=== PATIENT | male | born 1995 ===

== ENCOUNTER 2022-03-25 13:51 | Inpatient (IN) | payer SELFPAY ==
[~2022-03-25] VITALS: Ht 182.9 cm; Wt 64.3 kg
[2022-03-25] MEDS ORDERED: NALOXONE HCL 1 MG/ML 2 ML SYRINGE IVP ONE (14:30)
[2022-03-25] MEDS ORDERED: LevETIRAcetam 1,000 MG in DEXTROSE 5%-WATER 100 ML IV ONE (14:30)
[2022-03-25 14:38] LABS: BASOPHILS % (AUTO) 0.2 % (0.0-2.0); EOSINOPHILS % (AUTO) 3.8 % (1.0-6.0); HEMATOCRIT 41.4 % (41-53); LYMPHOCYTES # (AUTO) 0.6 K/uL (1.0-4.8); LYMPHOCYTES % (AUTO) 14.3 % (22.0-44.0); MEAN CORPUSCULAR HEMOGLOBIN 32.3 pg (26.0-34.0); MEAN CORPUSCULAR HGB CONC 33.8 G/dL (31.0-37.0); MEAN CORPUSCULAR VOLUME 96 fL (80-100); MONOCYTES # (AUTO) 0.4 K/uL (0.1-1.0); MONOCYTES % (AUTO) 9.6 % (2.0-9.0); NEUTROPHILS # (AUTO) 3.1 K/uL (1.8-7.7); NEUTROPHILS % (AUTO) 72.1 % (40.0-70.0); PLATELET COUNT (AUTO) 204 K/uL (150-450); RED BLOOD CELL COUNT(AUTO) 4.34 MIL/uL (4.50-5.90); RED CELL DISTRIBUTION WIDTH 13.7 % (11.5-14.5)
[2022-03-25 14:48] LABS: ANION GAP 10 mmol/L (8-16); CARBON DIOXIDE 29 mmol/L (22-29); CHLORIDE 103 mmol/L (98-107); CREATININE 1.06 mg/dL (0.60-1.30); GLUCOSE,RANDOM 93 mg/dL (70-110); POTASSIUM 3.7 mmol/L (3.5-5.1); SODIUM SERUM 142 mmol/L (136-145); UREA NITROGEN, BLOOD 7 mg/dL (7-18)
[2022-03-25 14:49] LABS: GLOMERULAR FILTR. RATE CALC > 60 mL/min (>60)
[2022-03-25 14:52] LABS: ALANINE AMINOTRANSFERASE 34 U/L (12-78); ALBUMIN 4.1 g/dL (3.4-5.0); ALKALINE PHOSPHATASE 63 U/L (46-116); ASPARTATE AMINOTRANSFERASE 27 U/L (15-37); BILIRUBIN,TOTAL 0.5 mg/dL (0.1-1.0); TOTAL PROTEIN, SERUM 7.1 g/dL (6.4-8.2)
[2022-03-25 14:53] LABS: ACETAMINOPHEN < 2 mcg/mL (10-30)
[2022-03-25 14:55] LABS: LACTIC ACID 0.9 mmol/L (0.4-2.0)
[2022-03-25 15:16] LABS: SALICYLATE 1.5 mg/dL (2.8-20.0)
[2022-03-25 16:03] LABS: COVID AG,FIA SOURCE NASOPHARYNGEAL
[2022-03-25] MEDS ORDERED: DiphenhydrAMINE HCL 25 MG CAPSULE PO ONE (16:30)
[2022-03-25] MEDS ORDERED: ONDANSETRON HCL 4 MG/2 ML VIAL IVP PRN ×2 (16:30→16:45)
[2022-03-25] MEDS ORDERED: LORazepam 2 MG TABLET PO ONE (16:30)
[2022-03-25] MEDS ORDERED: HALOPERIDOL 5 MG TABLET PO ONE (16:30)
[2022-03-25] MEDS ORDERED: BISACODYL 10 MG RECTAL RECTAL SUPPOSITORY PR PRN (16:45)
[2022-03-25] MEDS ORDERED: MORPHINE SULFATE 2 MG/ML SYRINGE IVP PRN (16:45)
[2022-03-25] MEDS ORDERED: ACETAMINOPHEN 325 MG TABLET PO PRN (16:45)
[2022-03-25] MEDS ORDERED: LORazepam 2 MG/ML VIAL IVP PRN (16:45)
[2022-03-25] MEDS ORDERED: MAGNESIUM SULFATE 2 GM, MVI, ADULT NO.1 WITH VIT K 10 ML, THIAMINE 100 MG, FOLIC ACID 1... IV ONE ×5 (16:45)
[2022-03-25] MEDS ORDERED: ZOLPIDEM TARTRATE 5 MG TABLET PO PRN (16:45)
[2022-03-25] MEDS ORDERED: MAGNESIUM HYDROXIDE SUSPENSION 30 ML UDCUP PO PRN (16:45)
[2022-03-25] MEDS ORDERED: HYDROCODONE/ACETAMINOPHEN 5-325 MG TABLET PO PRN (16:45)
[2022-03-25] MEDS: DOCUSATE SODIUM 100 MG CAPSULE PO SCH (20:30)
[2022-03-25 22:44] VITALS: BP 132/80
[2022-03-26 04:31] VITALS: BP 151/93
[2022-03-26 07:50] VITALS: BP 147/103
[2022-03-26] MEDS: DOCUSATE SODIUM 100 MG CAPSULE PO SCH ×2 (08:46→20:44)
[2022-03-26] MEDS: HEPARIN SODIUM,PORCINE 5,000 UNITS/ML VIAL SQ SCH ×3 (08:46→15:10)
[2022-03-26] MEDS ORDERED: PANTOPRAZOLE SODIUM 40 MG DR TABLET PO SCH (09:00)
[2022-03-26] MEDS ORDERED: MAGNESIUM SULFATE 2 GM, MVI, ADULT NO.1 WITH VIT K 10 ML, THIAMINE 100 MG, FOLIC ACID 1... IV ONE ×5 (10:30)
[2022-03-26] MEDS ORDERED: NICOTINE 14 MG/24 HOUR PATCH TD SCH (12:15)
[2022-03-26 12:40] VITALS: BP 135/71
[2022-03-26 15:12] LABS: APPEARANCE,URINE CLEAR (CLEAR); BILIRUBIN,URINE NEGATIVE (NEGATIVE); GLUCOSE, URINE (UA) NEGATIVE (NEGATIVE); LEUKOCYTE ESTERASE ,URINE NEGATIVE (NEGATIVE); NITRATE,URINE NEGATIVE (NEGATIVE); OCCULT BLOOD,URINE NEGATIVE (NEGATIVE); PH,URINE 5.5 (5.0-8.0); PROTEIN,URINE NEGATIVE (NEGATIVE); SPECIFIC GRAVITIY, URINE 1.014 (1.003-1.030); UROBILINOGEN,URINE <=1.0 mg/dL (<=1.0)
[2022-03-26 15:21] LABS: AMPHET/METH SCREEN,URINE POSITIVE (NEGATIVE); BARBITURATE SCREEN, URINE NEGATIVE (NEGATIVE); BENZODIAZEPINES SCREEN,URINE POSITIVE (NEGATIVE); CANNABINOID SCREEN,URINE NEGATIVE (NEGATIVE); COCAINE SCREEN,URINE NEGATIVE (NEGATIVE); METHADONE SCREEN, URINE NEGATIVE (NEGATIVE); OPIATE SCREEN,URINE NEGATIVE (NEGATIVE)
[2022-03-26 15:22] LABS: PHENCYCLIDINE SCREEN,URINE NEGATIVE (NEGATIVE)
[2022-03-26 15:59] LABS: BACTERIA,URINE None Seen /HPF (None Seen); RBC,URINE None Seen /HPF (0-2); WBC,URINE None Seen /HPF (0-5)
[2022-03-26 16:25] VITALS: BP 142/97
[2022-03-26 19:35] VITALS: BP 117/77
[2022-03-26 20:43] LABS: BASOPHILS % (AUTO) 0.4 % (0.0-2.0); EOSINOPHILS % (AUTO) 8.1 % (1.0-6.0); HEMATOCRIT 43.2 % (41-53); HEMOGLOBIN 15.1 g/dL (13.5-17.5); LYMPHOCYTES # (AUTO) 1.3 K/uL (1.0-4.8); MEAN CORPUSCULAR HEMOGLOBIN 32.4 pg (26.0-34.0); MEAN CORPUSCULAR HGB CONC 34.9 G/dL (31.0-37.0); MEAN CORPUSCULAR VOLUME 93 fL (80-100); MONOCYTES # (AUTO) 0.5 K/uL (0.1-1.0); MONOCYTES % (AUTO) 9.9 % (2.0-9.0); NEUTROPHILS % (AUTO) 57.6 % (40.0-70.0); PLATELET COUNT (AUTO) 190 K/uL (150-450); RED BLOOD CELL COUNT(AUTO) 4.64 MIL/uL (4.50-5.90); RED CELL DISTRIBUTION WIDTH 13.9 % (11.5-14.5)
[2022-03-26 20:49] LABS: ANION GAP 9 mmol/L (8-16); CALCIUM, TOTAL 8.9 mg/dL (8.8-10.5); CARBON DIOXIDE 29 mmol/L (22-29); CHLORIDE 103 mmol/L (98-107); CREATININE 1.07 mg/dL (0.60-1.30); GLOMERULAR FILTR. RATE CALC > 60 mL/min (>60); GLUCOSE,RANDOM 107 mg/dL (70-110); SODIUM SERUM 141 mmol/L (136-145); UREA NITROGEN, BLOOD 11 mg/dL (7-18)
== END 2022-03-26 21:10 | disposition left against medical advice (07) | DRG 917 ==
LOC: EMS 13:51 → 5S 20:39
PROVIDERS: ADMIT Internal Medicine; ATTEND Internal Medicine
DX: T42.4X1A Poisoning by benzodiazepines, accidental (unintentional), initial encounter (principal); G92.9 Unspecified toxic encephalopathy; F20.9 Schizophrenia, unspecified; F41.9 Anxiety disorder, unspecified; Y92.89 Other specified places as the place of occurrence of the external cause; Z53.29 Procedure and treatment not carried out because of patient's decision for other reasons; Z20.822 Contact with and (suspected) exposure to COVID-19
CPT/HCPCS: 70450; 71045; 80048; 80053; 81001; 82140; 83605; 85025; 93005; 99291; G0480; G0481; J0712; J1644; J2310; J3411; J3475; J3490; J7030; J7060; 36415-L1; 36415-TC